=== PATIENT | male | born 1980 | race American Indian/Alaskan Native ===

== ENCOUNTER 2021-05-30 17:02 | Emergency (ER) | payer SELFPAY ==
--- NOTE | 2021-05-30 17:17 | Emergency Department Report ---
ED Lower Extremity HPI - General Chief Complaint: Extremity Problem,Nontraumatic Stated Complaint: lower extremity Source: patient Mode of arrival: Ambulatory Limitations: No Limitations - History of Present Illness Initial Comments: Patient presented secondary to right leg edema. He came in by ambulance. Patient recently had surgery x2 on the right hip secondary to trauma. He woke up this morning with right leg edema. He did not go to bed with right leg edema. He has pain in this area. No chest pain shortness of breath. The pain is described as an aching sensation in the right leg. The edema is primarily below the knee. He states he has noticed some swelling about the knee. He is never had a DVT. He is concerned for this and ambulance had been called. Juan tenorio has no pain or swelling in the left leg. There were no complications from the right hip surgery as he can recall. 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 - Related Data Allergies Allergy/AdvReac Type Severity Reaction Status Date / Time No Known Allergies Allergy Verified 05/30/21 16:58 ED Review of Systems ROS: Stated complaint: lower extremity Other details as noted in HPI Comment: All other systems reviewed and negative Constitutional: denies: fever ENT: denies: ear pain Respiratory: denies: cough Cardiovascular: denies: chest pain Endocrine: denies: unexplained weight loss Gastrointestinal: denies: abdominal pain Genitourinary: denies: dysuria Musculoskeletal: denies: back pain Skin: denies: rash Neurological: denies: headache Hematological/Lymphatic: denies: easy bruising ED Past Medical Hx - Past Medical History Previous Medical History?: No - Surgical History Past Surgical History?: Yes Additional Surgical History: post hip surg - Family History Family history: no significant ED Physical Exam - General Limitations: No Limitations, Other (Pulse ox noted and normal) General appearance: alert, in no apparent distress - Head Head exam: Present: atraumatic, normocephalic, normal inspection - Eye Eye exam: Present: normal appearance, EOMI - ENT ENT exam: Present: normal exam, mucous membranes moist - Neck Neck exam: Present: normal inspection. Absent: meningismus - Respiratory Respiratory exam: Present: normal lung sounds bilaterally. Absent: respiratory distress - Cardiovascular Cardiovascular Exam: Present: regular rate, normal rhythm - GI/Abdominal GI/Abdominal exam: Present: soft. Absent: tenderness - Extremities Exam Extremities exam: Present: normal capillary refill, other (Patient does have edema involving the right leg. This is proximal to the knee and distal to the knee.) - Back Exam Back exam: Absent: CVA tenderness (R), CVA tenderness (L) - Neurological Exam Neurological exam: Present: alert, oriented X3 - Psychiatric Psychiatric exam: Present: normal affect, normal mood - Skin Skin exam: Present: warm, dry ED Course Vital Signs 05/30/21 17:03 Temperature 98.7 F Pulse Rate 90 Respiratory 16 Rate Blood Pressure 138/92 [Left] O2 Sat by Pulse 99 Oximetry - Reevaluation(s) Reevaluation #1: 05/30/21 17:15 EMS have been met and ultrasound was ordered. Reevaluation #2: 05/30/21 20:07 Doppler was noted. Patient was discharged ED Lower Extremity MDM - Radiology Data Radiology results: report reviewed - Medical Decision Making Patient presents with postoperative leg swelling. There was concern for DVT. He does not have a DVT based on ultrasound. There is no warmth erythema that would suggest cellulitis or infection. There is no trauma that would suggest new injury. Patient was primarily concerned about the possibility of DVT which is not present. His leg is not cold to touch. He has normal sensation. There is not significant pain. I do not believe this represents arterial occlusion. Critical Care Time: No Critical care attestation.: If time is entered above; I have spent that time in minutes in the direct care of this critically ill patient, excluding procedure time. ED Disposition Clinical Impression: Leg edema, right Disposition: 01 HOME / SELF CARE / HOMELESS Is pt being admited?: No Condition: Stable Additional Instructions: Elevate the leg. Ice the leg. Return for problems. Continue home medication. Follow-up with your regular doctor for recheck. Follow-up with your surgeon for recheck. Referrals: PRIMARY [facility]EMD [Referring] - 3-5 Days RENNY GUILLAUME MD [Staff Physician] - 3-5 Days
--- NOTE | 2021-05-30 19:30 | Vascular Lab Report ---
DUPLEX DOPPLER LOWER EXTREMITY VEINS, RIGHT INDICATION / CLINICAL INFORMATION: Postop swelling. TECHNIQUE: Duplex doppler imaging was performed through the veins of the right lower extremity using venous comp ression and other maneuvers. COMPARISON: None available. FINDINGS: RIGHT COMMON FEMORAL VEIN: Negative. RIGHT FEMORAL VEIN: Negative. RIGHT POPLITEAL VEIN: Negative. RIGHT CALF VEINS: Negative. ADDITIONAL FINDINGS: None. IMPRESSION: 1. No sonographic evidence for DVT in the right lower extremity. Signer Name: Nick Rm MD Signed: 05/30/2021 7:26 PM Workstation Name: [id number]
[2021-05-30 21:05] VITALS: BP 133/80
== END 2021-05-30 20:56 | disposition home or self-care (01) ==
LOC: ED 17:02
DX: R60.0 Localized edema (principal)
CPT/HCPCS: 99283